=== PATIENT | male | born 1945 | race Caucasian/White ===

== ENCOUNTER 2018-09-18 07:53 | Outpatient (CLI) | payer OTHER | END 2018-09-18 07:55 | disposition home or self-care (01) | LOC: SONOGRAMA 07:53 → MAMO-SONO 08:15 | DX: N40.2 Nodular prostate without lower urinary tract symptoms (principal); R97.20 Elevated prostate specific antigen [PSA] ==

== ENCOUNTER 2022-10-30 07:09 | Outpatient (CLI) | payer OTHER | END 2022-10-30 07:18 | disposition home or self-care (01) | LOC: RX STUDY 07:09 | PROVIDERS: ATTEND Internal Medicine Gastroenterology | DX: R13.10 Dysphagia, unspecified (principal); K21.9 Gastro-esophageal reflux disease without esophagitis ==